=== PATIENT | female | born 1985 | race Caucasian/White ===

== ENCOUNTER 2017-01-27 17:36 | Emergency (ER) | payer MEDICAID ==
[2017-01-27 17:47] VITALS: TEMP 98.4
--- NOTE | 2017-01-27 17:56 | EDPHY ---
H & P Stated Complaint: slip and fall in [place], l shoulder and arm pain, face pain, abrasions to le Time Seen by Provider: 01/27/17 17:39 HPI/ROS: CHIEF COMPLAINT: Left shoulder pain HISTORY OF PRESENT ILLNESS: This 31-year-old female who was tubing and slipped on some rocks. She fell forward, striking her face and landing on her left arm. She had the immediate onset of left shoulder pain and heard a "pop ". She has not wanted to move her left arm since. She denies loss of consciousness. She is not aware of numbness or weakness. She does not have neck or back pain. REVIEW OF SYSTEMS: A ten point review of systems was performed and is negative with the exception of the items mentioned in the HPI. Past medical history: Negative Past surgical history: Negative Social history: She is here with her fiance and daughter. She drinks alcohol socially. General: The patient is in no acute distress. The patient is alert. Hayden Coma Score is 15. Head: Normocephalic/atraumatic. No Mendoza's sign. No raccoon eyes. No facial bone tenderness or deformity. Neck: Nontender with palpation of the cervical spine. Trachea is midline. Eyes: PERRLA. EOMI. No subconjunctival hemorrhage. Ears nose and throat: No hemotympanum. Nares are patent and without clotted nasal blood. There is an abrasion on the bridge of her nose, no tenderness or deformity. No septal hematoma. No dental injury or malocclusion. Airway is patent. Lungs: No rib tenderness, crepitus, or subcutaneous emphysema. Breath sounds are equal and audible bilaterally. No wheezes, rales, or rhonchi. Cardiac: Heart has regular rate and rhythm without murmur, rub, or gallop. Abdomen: Soft, nontender, and nondistended. No guarding or rebound. Bowel sounds are present. Back: No vertebral tenderness. No left scapular tenderness. Skin: No ecchymoses. Skin is warm and dry. Extremities: Tenderness to palpation of the anterior left shoulder. No deformity noted. Pulses: 2+ radial pulse on the left. Neuro: The patient is alert and oriented. Sensation is intact to light touch of all 4 extremities. Strength is 5 over 5 with testing of major motor groups. Cranial nerves are normal as tested. PERRLA. EOMI. Facial expression symmetric. Hearing intact to spoken voice. - Personal History LMP (Females 10-55): 1-7 Days Ago Current Tetanus Diphtheria and Acellular Pertussis (TDAP): Unsure - Medical/Surgical History Other PMH: denies - Social History Smoking Status: Never smoked Constitutional: Initial Vital Signs Temperature (C) 36.9 C 01/27/17 17:36 Heart Rate 51 L 01/27/17 17:36 Respiratory Rate 18 01/27/17 17:36 Blood Pressure 96/61 L 01/27/17 17:36 O2 Sat (%) 98 01/27/17 17:36 O2 Delivery Mode Room Air O2 (L/minute) 2 Allergies/Adverse Reactions: No Known Allergies Allergy (Unverified 01/27/17 17:40) Home Medications: Medication Instructions Recorded NK [No Known Home Meds] 01/27/17 Medical Decision Making - Diagnostics Imaging: I viewed and interpreted images myself ED Course/Re-evaluation: X-ray of her left shoulder does not show dislocation or fracture. Her left arm was placed in a sling. She was given 30 mg of Toradol in addition to the fentanyl that she had received EN route. On repeat evaluation she is not complaining of left elbow pain. On palpation she has lateral left elbow tenderness. Will x-ray this elbow prior to discharging her. Above x-rays negative for fracture dislocation. The patient was examined 3 times during her stay in the emergency department. I have not found evidence of bony injury or dislocation. I am recommending RICE therapy and [id number] pain medication. Differential Diagnosis: Considered a differential diagnosis that includes but is not limited to fracture , dislocation, sprain, strain, contusion, abrasion. - Data Points Medications Given: Discontinued Medications Ketorolac Tromethamine (Toradol) 30 mg IVP EDNOW ONE Stop: 01/27/17 18:27 Last Admin: 01/27/17 18:35 Dose: 30 mg Departure - Departure Disposition: Home, Routine, Self-Care Clinical Impression: Sprain of shoulder, left Qualifiers: Encounter type: initial encounter Shoulder sprain type: unspecified sprain Qualified Code(s): S43.402A - Unspecified sprain of left shoulder joint, initial encounter Condition: Good Instructions: Shoulder Sprain (ED), RICE Therapy (ED) Additional Instructions: Use the sling as needed for comfort. If you are having continued shoulder and arm pain you should be re-evaluated. I am referring you to an orthopedist for this but you can also see a physician of your choice. Adult Pain & Fever Control: We recommend Acetaminophen (Tylenol) and Ibuprofen (Motrin,Advil) for pain and fever control. When fever is high or pain severe, both drugs can be used at the same time, but at different intervals. Please note the time differences. Your dose is: Acetaminophen 650mg every 4 to 6 hours Ibuprofen 400mg every 6 hours with food OR Note: do not take Acetaminophen with Hydrocodone (Vicodin, Lortab) or Oycodone (Percocet). These medications also contain Acetaminophen. No more than 3000mg of Acetaminophen should be taken in 24 hours (for an adult). Referrals: Matt Franz MD [Medical Doctor] - As per Instructions
[2017-01-27] MEDS ORDERED: KETOROLAC 30 MG/1 ML SDV IVP ONE (18:26)
[2017-01-27 19:45] VITALS: BP 100/60; PULSE 60; RESP 14; O2SAT 96
== END 2017-01-27 19:45 | disposition home or self-care (01) ==
DX: S43.402A Unspecified sprain of left shoulder joint, initial encounter (principal); W01.118A Fall on same level from slipping, tripping and stumbling with subsequent striking against other sharp object, initial encounter; Y99.8 Other external cause status; Y93.89 Activity, other specified
CPT/HCPCS: 96374; A4565; J1885